=== PATIENT | female | born 1960 | race Caucasian/White ===

== ENCOUNTER 2021-04-21 07:53 | Day surgery (SDC) | payer OTHER ==
[~2021-04-21] VITALS: Ht 167.6 cm; Wt 80.0 kg
[~2021-04-21 07:53] MED LIST: BUPROPION XL300 MG PO; OMEPRAZOLE20 MG PO; SERTRALINE HCL100 MG PO; TRAZODONE HCL50 MG PO
[2021-04-21] MEDS ORDERED: ZESTRIL5 MG PO (08:13)
--- NOTE | 2021-04-21 10:49 | NUR ---
04/21/21 Prem9 Nini Carrion 1041-PATIENT ARRIVED TO PACU ON 3L NC RR EVEN PLACED ON 2L. PATIENT NONAROUSABLE LAYING LEFT LATERAL. IVF INFUSING. SINUS BRADYCARDIA ON TELEMETRY. 1045-PATIENT AROUSING AND OPENING EYES MOVES ALL EXTREMITIES. DENIES PAIN OR NAUSEA. ORIENTED TO PACU. PASSING GAS. 2L NC RR EVEN.
--- NOTE | 2021-04-22 06:34 | OR ---
[facility] [address], [place] [address] Signed DATE OF OPERATION: 04/21/2021 SURGEON: Ashlyn Alvarenga MD PREOPERATIVE DIAGNOSES: 1. Father with colon cancer in his late 50s or early 60s. 2. Hyperplastic polyps in 2016. 3. Diverticulosis. 4. Hemorrhoids. 5. Long redundant colon. POSTOPERATIVE DIAGNOSES: 1. Moderate sigmoid diverticulosis. 2. Long redundant colon with angulations in the sigmoid colon. 3. Moderate internal hemorrhoids. 4. A 6 mm polyp at 35 cm. 5. A 8 mm pedunculated polyp and 8 mm polyp at 33 cm requiring the snare. A 5 mm polyp at 22 cm. 6. Small lipoma, distal right colon. PROCEDURES: Colonoscopy with snare polypectomy, hot biopsy and application of clip at 33 cm. INDICATIONS: Milagros is a 60-year-old female, asked to see me for followup colonoscopy. Her father had developed colon cancer in his late 50s or early 60s. She underwent a colonoscopy in 2016 with myself. We used an enormous amount of Versed and fentanyl and even then it was very difficult. She was pretty out of it for a couple of days. Consequently, we have asked for monitored anesthesia care with propofol on this occasion. It proved to be a huynh decision and technically much safer for Milagros. She did have hyperplastic polyps back in 2016. We know she has diverticulosis and some hemorrhoids. We know she has a long redundant colon with some angulation in the sigmoid colon. Currently, she has no lower GI complaints. In the office, I gave Milagros and her a pamphlet on colonoscopy. They remember the nature of the test quite well. There is risk including, but not limited to gas bloating, crampy abdominal pain, bleeding, perforation requiring surgery, and missed diagnosis. We also discussed the need for the monitored anesthesia care. They agreed that would be a helpful in addition to her colonoscopies. They had expressed understanding and wished to proceed. PROCEDURE NOTE: Electronically Signed By: ASHLYN ALVARENGA MD 04/22/21 0634 PATIENT NAME: MILAGROS PEPPER OPERATIVE REPORT DATE OF : 56 REPORT #: [id number] PHYSICIAN: ASHLYN ALVARENGA MD PCP: TORITO HERRERA PA-C REPORT IS CONFIDENTIAL AND NOT TO BE RELEASED WITHOUT AUTHORIZATION [facility] [address] [place] [id number] Signed Milagros was taken into our endoscopy suite and placed in the left lateral decubitus position. She was given monitored anesthesia care per our nurse banbury machine operator to include propofol. A digital rectal exam was performed and this was unremarkable. The adult colonoscope was introduced and advanced under direct visualization of the camera. It took some time to get through the sigmoid colon as well as rotating the scope finally up into the left colon. Much improved with the help of the propofol. After that, the scope passed nicely up to the hepatic flexure. We then had to rotate her into the supine position and use extra propofol and abdominal compression in order to get the scope around the hepatic flexure and down into the cecum itself. Her prep was good. We could see the appendiceal orifice and the ileocecal valve. The scope was then slowly withdrawn. We took pictures throughout for photodocumentation. She has a small benign-appearing lipoma in the distal right colon. We used our hot biopsy forceps at 35 cm to remove that polyp. There were two polyps at 33 cm. One was long and pedunculated, the other more round. We had to use a snare on both of those polyps. We then used our cautery on the long pedunculated polyp stump. It was still bleeding a little bit, so we went ahead and applied a clip with good hemostasis. There was another polyp about 5 mm in size back at 22 cm. It was easily removed with a hot biopsy forceps. Once in the rectum, the scope was then retroflexed and we could see she has moderate internal hemorrhoid columns. We could see the old polypectomy sites in the rectum. After this, the gas was suctioned out and the colonoscope removed. Milagros tolerated the procedure quite well. RECOMMENDATIONS: I will see Milagros back in my office in 7 to 14 days to review her results. She will need monitored anesthesia care as always in the future. Ashlyn Alvarenga MD ALB/MODL /[id number] cc: Dr. Torito Alvarenga MD Electronically Signed By: ASHLYN ALVARENGA MD 04/22/21 0634 PATIENT NAME: MILAGROS PEPPER OPERATIVE REPORT DATE OF : 56 REPORT #: [id number] PHYSICIAN: ASHLYN ALVARENGA MD PCP: TORITO HERRERA PA-C REPORT IS CONFIDENTIAL AND NOT TO BE RELEASED WITHOUT AUTHORIZATION [address] [place], [place] [address] Signed Copies: ASHLYN ALVARENGA MD ~ Electronically Signed By: ASHLYN ALVARENGA MD 04/22/21 0634 PATIENT NAME: MILAGROS PEPPER OPERATIVE REPORT DATE OF : 56 REPORT #: [id number] PHYSICIAN: ASHLYN ALVARENGA MD PCP: TORITO HERRERA PA-C REPORT IS CONFIDENTIAL AND NOT TO BE RELEASED WITHOUT AUTHORIZATION
== END 2021-04-21 11:25 | disposition home or self-care (01) ==
LOC: DS 07:53 → OPS 07:53 → DS 08:15 → OPS 11:25
PROVIDERS: ATTEND Colon & Rectal Surgery
PROC: 0DBN8ZZ Excision of Sigmoid Colon, Via Natural or Artificial Opening Endoscopic (ICD-10-PCS; 2021-04-21)
PROC: 0DBN8ZZ Excision of Sigmoid Colon, Via Natural or Artificial Opening Endoscopic (ICD-10-PCS; principal; 2021-04-21 08:15)
DX: D12.2 Benign neoplasm of ascending colon (principal); K63.5 Polyp of colon; K64.8 Other hemorrhoids; K57.30 Diverticulosis of large intestine without perforation or abscess without bleeding
CPT/HCPCS: J2001; J2704; J7121